=== PATIENT | female | born 1960 | race Caucasian/White ===

== ENCOUNTER 2023-05-09 06:35 | Day surgery (SDC) | payer OTHER ==
[2023-05-07 13:47] VITALS: BMI 25.8
[2023-05-09] MEDS ORDERED: TETRACAINE 0.5% OPHTH SOLN 2 ML BOTTLE ONE (07:16)
[2023-05-09] MEDS ORDERED: BSS (NA/CA/MG/K) BALANCED SALT SOLUTION OPHTH SOLN 15 ML BOTTLE ONE (07:16)
[2023-05-09] MEDS ORDERED: LIDOCAINE 1% P/F 10 MG/ML VIAL ONE (07:16)
[2023-05-09] MEDS ORDERED: CARBACHOL 0.01% INTRA-OCULAR 1.5 ML VIAL ONE (07:17)
[2023-05-09] MEDS ORDERED: NEO/POLYMYX B SULF/DEXAMETH OPHTHALMIC 5ML BOTTLE ONE (07:17)
[2023-05-09 07:22] VITALS: RESP 18
[2023-05-09] MEDS: CYCLOPENTOLATE 2% OPHTH SOLN 2 ML BOTTLE ONE (07:25)
[2023-05-09] MEDS: PHENYLEPHRINE 2.5% OPTHALMIC DROP 2ML BOTTLE ONE (07:25)
[2023-05-09] MEDS: TROPICAMIDE 1% OPHTH SOLN 15 ML BOTTLE ONE (07:25)
[2023-05-09] MEDS: CIPROFLOXACIN 0.3% EYE DROPS 5 ML BOTTLE ONE (07:25)
[2023-05-09] MEDS ORDERED: MIDAZOLAM HCL 2 MG/2 ML SINGLE DOSE VIAL ONE (08:41)
[2023-05-09 09:55] VITALS: BP 110/58; PULSE 61; TEMP 98
== END 2023-05-09 09:45 | disposition home or self-care (01) ==
LOC: FASU 06:35
PROVIDERS: ATTEND Ophthalmology
PROC: 08RK3JZ Replacement of Left Lens with Synthetic Substitute, Percutaneous Approach (ICD-10-PCS; principal; 2023-05-09 08:48)
DX: H26.8 Other specified cataract (principal)
CPT/HCPCS: 66984; V2632